=== PATIENT | female | born 2000 | race Native Hawaiian/Other Pacific Islander ===

== ENCOUNTER → 2021-03-22 | Outpatient (CLI) | payer OTHER ==
--- NOTE | 2021-03-22 10:13 | US ---
EXAMINATION TYPE: US abdomen complete DATE OF EXAM: 03/22/2021 COMPARISON: NONE CLINICAL HISTORY: R10.13 Epigastric pain. Epigastric pain after meals and radiating to back at night which awakens her; symptoms x 6 months EXAM MEASUREMENTS: Liver Length: 14.3 cm Gallbladder Wall: 0.2 cm CBD: 0.4 cm Spleen: 11.9 cm Right Kidney: 9.4 x 4.5 x 4.0 cm Left Kidney: 10.3 x 5.1 x 4.5 cm Pancreas: wnl, tail obscured by overlying bowel gas Liver: mildly fatty liver as is hyperechoic to right renal cortex Gallbladder: nonmobile shadowing stone seen in tortuous neck = 1.0 x 1.1 x 0.7cm; multiple shadowing stones seen in fundus Evidence for sonographic Cavanaugh's sign: mildly tender here CBD: wnl Spleen: wnl Right Kidney: No hydronephrosis or masses seen Left Kidney: No hydronephrosis or masses seen Upper IVC: wnl Abd Aorta: wnl The liver is homogenous. The intrahepatic portion of the IVC and proximal abdominal aorta are within normal limits. There is no evidence of cholelithiasis. Common bile duct is unremarkable. The visu alized portions of the pancreas are homogenous. The spleen is unremarkable. Kidneys are symmetric a nd free of hydronephrosis. No renal lesions are seen. IMPRESSION: 1. Nonmobile calculus in the gallbladder neck with mild tenderness. 2. Nonspecific echogenic liver most likely represents hepatic steatosis.
== END | disposition home or self-care (01) ==
LOC: RADUSWWP 08:17
PROVIDERS: ATTEND Pediatrics
DX: K80.20 Calculus of gallbladder without cholecystitis without obstruction (principal); R93.2 Abnormal findings on diagnostic imaging of liver and biliary tract
CPT/HCPCS: 76700

== ENCOUNTER → 2021-05-23 | Outpatient (CLI) | payer OTHER ==
--- NOTE | 2021-05-23 15:37 | NM ---
EXAMINATION TYPE: NM hepatobiliary w EF DATE OF EXAM: 05/23/2021 COMPARISON: Ultrasound 03/22/2021 HISTORY: 21-year-old female R80.20, gallstones TECHNIQUE: After the intravenous administration of 4.1 mCi Tc 99m Mebrofenin hepatobiliary scintigrap hy is performed. Immediate images post injection. FINDINGS: There is satisfactory initial accumulation of tracer by the liver. The gallbladder is visualized wit hin 16 minutes. The small bowel activity is noted within 24 minutes. At one hour 8 ounces of oral e nsure plus is given to mimic CCK and gallbladder ejection fraction is calculated at 67 %, in the norm al range. IMPRESSION: No scintigraphic evidence for acute/chronic cholecystitis or biliary dyskinesia.
== END | disposition home or self-care (01) ==
LOC: RADNMMAIN 12:31
PROVIDERS: ATTEND Pediatrics
DX: K80.20 Calculus of gallbladder without cholecystitis without obstruction (principal)
CPT/HCPCS: 78226; A9537

== ENCOUNTER → 2023-04-01 | Outpatient (CLI) | payer OTHER ==
--- NOTE | 2023-04-01 11:48 | US ---
EXAMINATION TYPE: US abdomen complete DATE OF EXAM: 04/01/2023 COMPARISON: US 2020 CLINICAL INDICATION: Female, 23 years old with history of RIGHT UPPER QUADRANT PAIN R10.00; Intermitt ent abdomen pain x 1 year, known cholelithiasis TECHNIQUE: Multiple sonographic images of the abdomen are obtained. FINDINGS: EXAM MEASUREMENTS: Liver Length: 14.7 cm Gallbladder Wall: 0.2 cm CBD: 0.6 cm Spleen: 12.1 cm Right Kidney: 10.0 x 5.6 x 4.5 cm Left Kidney: 10.6 x 5.8 x 4.6 cm Pancreas: wnl Liver: wnl Gallbladder: cholelithiasis with 1.3cm stone in neck Evidence for sonographic Cavanaugh's sign: no CBD: borderline dilated Spleen: wnl Right Kidney: wnl Left Kidney: wnl Upper IVC: wnl Abd Aorta: wnl The liver is homogenous. The intrahepatic portion of the IVC and proximal abdominal aorta are within normal limits. Common bile duct is unremarkable. The visualized portions of the pancreas are homog enous. The spleen is unremarkable. Kidneys are symmetric and free of hydronephrosis. No renal lesi ons are seen. IMPRESSION: 1. No evidence for acute process. 2. Cholelithiasis
== END | disposition home or self-care (01) ==
LOC: RADUSWWP 09:33
PROVIDERS: ATTEND Pediatrics
DX: K80.20 Calculus of gallbladder without cholecystitis without obstruction (principal)
CPT/HCPCS: 76700

== ENCOUNTER 2025-01-20 21:58 | Observation (INO) | payer BC, OTHER ==
--- NOTE | 2025-01-20 22:29 | ED ---
General Adult HPI - General Chief complaint: Seizure Stated complaint: 19 Week - Seizure Time Seen by Provider: 01/20/25 22:08 Source: patient Mode of arrival: wheelchair Limitations: no limitations - History of Present Illness Initial comments: Patient is a pleasant 24-year-old female, G1, P0, currently 18 weeks 6 days , presenting today for seizure. Patient has a history of seizures. States she has been he has been seizure-free for 6 to 7 years and has had an increased frequency of seizures during her . Last seizure was in November. Today seizure was witnessed by her boyfriend. States looked similar prior to seizures, typical grand mal seizure. Last 1 minutes 15 seconds. Patient has since returned to baseline. She did not hit her head as she was seated at the time. Patient currently takes Lamictal and Onfi. Her medications were changed in November after her last seizure. She sees a neurologist out of [facility]. She currently endorses a mild headache that she states she typically gets after her seizures. Rates 4-5 out of 10. She denies changes in vision, focal numbness or weakness, chest pain, shortness of breath, fevers or chills, neck stiffness, abdominal pain, vomiting, dysuria, urinary frequency or hematuria. Denies vaginal bleeding or vaginal discharge. Of note typically sees Dr. Guerrero, Neurology, [facility]. Was on zonegran, 250 mg nightly, onfi and lamictal 250 BID until her last seizure in November. At that time, patient was taken off of zonegran and lamictal was increased to 350 mg BID. Pt's mother states this was done in consultation with high frequency mill operator, who pt states she sees due to her seizure history. Pt states that Dr. Guerrero said she planned to restart the patient on zonegran if she had another seizure. - Related Data Home Medications Medication Instructions Recorded Confirmed Topiramate [Topamax] 100 mg PO DAILY 04/05/16 07/08/16 Topiramate [Topamax] 150 mg PO HS 04/05/16 07/08/16 Acetaminophen Tab [Tylenol] 1,000 mg PO Q6H PRN 07/08/16 07/08/16 cloBAZam [Onfi] 10 mg PO DAILY 07/08/16 07/08/16 cloBAZam [Onfi] 15 mg PO HS 07/08/16 07/08/16 Allergies Allergy/AdvReac Type Severity Reaction Status Date / Time No Known Allergies Allergy Verified 01/20/25 22:04 Review of Systems ROS Statement: Those systems with pertinent positive or pertinent negative responses have been documented in the HPI. ROS Other: All systems not noted in ROS Statement are negative. Past Medical History Past Medical History: Seizure Disorder Additional Past Medical History / Comment(s): absent and grand mal seizures History of Any Multi-Drug Resistant Organisms: None Reported Past Surgical History: No Surgical Hx Reported, Cholecystectomy Past Psychological History: No Psychological Hx Reported Smoking Status: Never smoker Past Alcohol Use History: Occasional Past Drug Use History: None Reported - Past Family History Mother Family Medical History: No Reported History General Exam - General Exam Comments Initial Comments: PE: CONSTITUTIONAL: No apparent distress, well appearing SKIN: Warm, dry, no jaundice, hives or petechiae EYES: Pupils are equally round, extraocular movements intact without nystagmus, clear conjunctiva, non-icteric sclera HENT: Normocephalic, atraumatic, moist mucus membranes, oropharynx clear without exudates NECK: , Full range of motion, normal appearance PULMONARY: Clear to auscultation without wheezes, rhonchi, or rales, normal excursion, no accessory muscle use and no stridor CARDIOVASCULAR: Regular rate, rhythm, normal S1 and S2. No appreciated murmurs, rubs or gallops. Strong radial pulses with intact distal perfusion. No lower extremity edema GASTROINTESTINAL: Soft, active bowel sounds throughout, non-tender, non- distended, no palpable masses, no rebound or guarding. No hepatosplenomegaly GENITOURINARY: MUSCULOSKELETAL: Extremities have no gross deformity, no edema, redness, or swelling. NEUROLOGIC:_a/o x 3, GCS 15, normal mentation and speech. Moves all extremities x 4 without motor or sensory deficit PSYCHIATRIC:_normal mood and affect, thought process is clear and linear Limitations: no limitations Course Vital Signs 01/20/25 01/21/25 22:00 00:22 Temperature 98.3 F 98.7 F Pulse Rate 91 85 Respiratory 18 16 Rate Blood Pressure 132/80 120/76 O2 Sat by Pulse 93 L 100 Oximetry EKG Findings - EKG Comments: EKG Findings:: Sinus rhythm, rate 84 bpm intervals within acceptable limits, normal axis, no ST elevations or depressions, no arrhythmia, no Brugada pattern, no delta waves no ST elevations or depression Medical Decision Making - Medical Decision Making Was pt. sent in by a medical professional or institution (KATTY Hernandez, REGISTERED OCCUPATIONAL THERAPIST, urgent care, hospital, or jail...) When possible be specific @ -No Did you speak to anyone other than the patient for history (EMS, parent, family, police, friend...)? What history was obtained from this source @Spoke with patient's boyfriend who witnessed seizure, described as a grand mal seizure lasting 1 minute 15 seconds, no head injury Did you review nursing and triage notes (agree or disagree)? Why? @ -I reviewed and agree with nursing and triage notes Were old charts reviewed (outside hosp., previous admission, EMS record, old EKG, old radiological studies, urgent care reports/EKG's, jail records)? Report findings @ -Medical records reviewed Differential Diagnosis (chest pain, altered mental status, abdominal pain women, abdominal pain men, vaginal bleeding, weakness, fever, dyspnea, syncope, headache, dizziness, GI bleed, back pain, seizure, CVA, palpatations, mental health, musculoskeletal)? @ -Differential Seizure: Recurrent seizure disorder, febrile seizure, alcohol withdrawal, stimulants, meningitis, encephalitis, intercranial hemorrhage, intracranial tumor, stroke, eclampsia, thyrotoxicosis, hypocalcemia, hyponatremia, hypernatremia, hypomagnesemia, psychogenic, this is not meant to be an all-inclusive list. EKG interpreted by me (3pts min.). @ -As above X-rays interpreted by me (1pt min.). @ -None done CT interpreted by me (1pt min.). @ -None done U/S interpreted by me (1pt. min.). @ -None done What testing was considered but not performed or refused? (CT, X-rays, U/S, labs)? Why? @ -None What meds were considered but not given or refused? Why? @Did consider Keppra bolus however after discussion with Dr. Thornton, recommends against this at this point Did you discuss the management of the patient with other professionals (professionals i.e. KATTY Hernandez, REGISTERED OCCUPATIONAL THERAPIST, lab, RT, psych nurse, outreach and education social worker, scrummaster, teacher, security officer supervisor, behavioral health case manager)? Give summary @Case discussed with Dr. Thornton, neurology, appreciate recommendations. We had an extensive discussion regarding adjustments to patient's medications, and based off of patient's history, and reported conversations with her regular neurologist, ultimately decided to restart pt's zonegran, and admit for observation and he will see in the morning- Thank you. I did also discuss case with Dr. Pennington, sharepoint application developer for Dr. Guerrero, please see below. Agrees w/ restarting zonegran, 200 mg QHS. Was smoking cessation discussed for >3mins.? @ -No Was critical care preformed (if so, how long)? @ -No Were there social determinants of health that impacted care today? How? (Homel essness, low income, unemployed, alcoholism, drug addiction, transportation, low edu. Level, literacy, decrease access to med. care, long-term, rehab)? @ -No Was there de-escalation of care discussed even if they declined (Discuss DNR or withdrawal of care, Hospice)? @ -No What co-morbidities impacted this encounter? (DM, HTN, Smoking, COPD, CAD, Cancer, CVA, ARF, Chemo, Hep., AIDS, mental health diagnosis, sleep apnea, morbid obesity)? Epilepsy Was patient admitted / discharged? Hospital course, mention meds given and route, prescriptions, significant lab abnormalities, going to OR and other per tinent info. @Admission-Patient is a 24-year-old female history of epilepsy with grand mal seizures, currently 18 weeks 6 days presenting today for seizure at home. Last 1 minute 15 seconds. Consistent with prior seizures. Patient denies missed dosages of medications. On arrival patient is oriented x 4, no focal deficits no seizure activity. Discussed plan for basic labs, will consult neurology and OB, anticipate admission. Of note, patient is currently taking 350 mg of Lamictal twice daily in addition to onfi, 5 mg BID. Had an extensive discussion with Dr. Thornton, appreciate recommendations, ultimately after discussing's patient's current medications and recent medication changes as well as recent suggestions from patient's neurologist. Recommends admission for monitoring, will see patient in the morning. Dr. Guerrero at [facility], will add zonegran back into patient's medications. I did also discuss case with Dr. Pennington, neurology sharepoint application developer at [facility], agrees with recommend ation to add zonegran. Recommends starting with 200 mg Q HS. This was added for the patient to start tomorrow evening. Additionally case discussed with Dr. Singleton sharepoint application developer for [facility], rec's medicine admission, OB will follow for regular heart tone checks. FHT here in the ED showed HRs in 130s. Updated pt to plan of care, she is agreeable with plan. Patient discussed with KATHERIN Beaulieu who kindly excepted patient for admission for Undiagnosed new problem with uncertain prognosis? @ -No Drug Therapy requiring intensive monitoring for toxicity (Heparin, Nitro, Insulin, Cardizem)? @ -No Were any procedures done? @ -No Diagnosis/symptom? @Breakthrough seizure Acute, or Chronic, or Acute on Chronic? @Acute Uncomplicated (without systemic symptoms) or Complicated (systemic symptoms)? Complicated Side effects of treatment? @ -No Exacerbation, Progression, or Severe Exacerbation? @ -No Poses a threat to life or bodily function? How? (Chest pain, USA, LA, pneumonia, PE, COPD, DKA, ARF, appy, cholecystitis, CVA, Diverticulitis, Homicidal, Suicidal, threat to staff... and all critical care pts) @Potentially, if left unaddressed could progress to status epilepticus - Lab Data Result diagrams: 01/20/25 22:23 01/20/25 22:23 Lab Results 01/20/25 01/20/25 01/20/25 Range/Units 22:23 22:23 22:23 WBC 12.54 H (4.50-10.00) 10*3/uL RBC 4.02 L (4.10-5.20) 10*6/uL Hgb 12.3 (12.0-15.0) g/dL Hct 35.0 L (37.2-46.3) % MCV 87.1 (80.0-97.0) fL MCH 30.6 (27.0-32.0) pg MCHC 35.1 (32.0-37.0) g/dL Plt Count 289 (140-440) 10*3/uL MPV 9.2 L (9.5-12.2) fL Immature Gran % (Auto) 0.3 % Neutrophils % 70.9 % Lymphocytes % 20.5 % Monocytes % 5.9 % Eosinophils % 1.8 % Basophils % 0.6 % Immature Gran # 0.04 (0.00-0.04) 10*3/uL Neutrophils # 8.90 H (1.80-7.70) 10*3/uL Lymphocytes # 2.57 (0.90-5.00) 10*3/uL Monocytes # 0.74 (0.20-1.00) 10*3/uL Eosinophils # 0.22 (0.04-0.35) 10*3/uL Basophils # 0.07 (0.00-0.10) 10*3/uL Sodium 135 L (137-145) mmol/L Potassium 3.8 (3.5-5.1) mmol/L Chloride 104 (98-107) mmol/L Carbon Dioxide 16 L (22-30) mmol/L Anion Gap 15 mmol/L BUN 7 (7-17) mg/dL Creatinine 0.58 (0.52-1.04) mg/dL Est GFR (CKD-EPI)AfAm >90 (>60 ml/min/1.73 sqM) Est GFR (CKD-EPI)NonAf >90 (>60 ml/min/1.73 sqM) Glucose 83 (74-99) mg/dL POC Glucose (mg/dL) (70-110) mg/dL POC Glu Roll Or Tape Edge Machine Operator ID Calcium 9.4 (8.4-10.2) mg/dL Magnesium 1.7 (1.6-2.3) mg/dL Total Bilirubin 0.3 (0.2-1.3) mg/dL AST 46 H (14-36) U/L ALT 61 H (4-34) U/L Alkaline Phosphatase 78 (38-126) U/L Total Protein 6.7 (6.3-8.2) g/dL Albumin 4.0 (3.5-5.0) g/dL Urine Color Colorless Urine Appearance Clear (Clear) Urine pH 5.0 (5.0-8.0) Ur Specific Byron 1.016 (1.001-1.035) Urine Protein Trace H (Negative) Urine Glucose (UA) Negative (Negative) Urine Ketones 1+ H (Negative) Urine Blood Negative (Negative) Urine Nitrite Negative (Negative) Urine Bilirubin Negative (Negative) Urine Urobilinogen <2.0 (<2.0) mg/dL Ur Leukocyte Esterase Negative (Negative) 01/20/25 Range/Units 22:44 WBC (4.50-10.00) 10*3/uL RBC (4.10-5.20) 10*6/uL Hgb (12.0-15.0) g/dL Hct (37.2-46.3) % MCV (80.0-97.0) fL MCH (27.0-32.0) pg MCHC (32.0-37.0) g/dL Plt Count (140-440) 10*3/uL MPV (9.5-12.2) fL Immature Gran % (Auto) % Neutrophils % % Lymphocytes % % Monocytes % % Eosinophils % % Basophils % % Immature Gran # (0.00-0.04) 10*3/uL Neutrophils # (1.80-7.70) 10*3/uL Lymphocytes # (0.90-5.00) 10*3/uL Monocytes # (0.20-1.00) 10*3/uL Eosinophils # (0.04-0.35) 10*3/uL Basophils # (0.00-0.10) 10*3/uL Sodium (137-145) mmol/L Potassium (3.5-5.1) mmol/L Chloride (98-107) mmol/L Carbon Dioxide (22-30) mmol/L Anion Gap mmol/L BUN (7-17) mg/dL Creatinine (0.52-1.04) mg/dL Est GFR (CKD-EPI)AfAm (>60 ml/min/1.73 sqM) Est GFR (CKD-EPI)NonAf (>60 ml/min/1.73 sqM) Glucose (74-99) mg/dL POC Glucose (mg/dL) 104 (70-110) mg/dL POC Glu Roll Or Tape Edge Machine Operator ID Mary Elias Calcium (8.4-10.2) mg/dL Magnesium (1.6-2.3) mg/dL Total Bilirubin (0.2-1.3) mg/dL AST (14-36) U/L ALT (4-34) U/L Alkaline Phosphatase (38-126) U/L Total Protein (6.3-8.2) g/dL Albumin (3.5-5.0) g/dL Urine Color Urine Appearance (Clear) Urine pH (5.0-8.0) Ur Specific Byron (1.001-1.035) Urine Protein (Negative) Urine Glucose (UA) (Negative) Urine Ketones (Negative) Urine Blood (Negative) Urine Nitrite (Negative) Urine Bilirubin (Negative) Urine Urobilinogen (<2.0) mg/dL Ur Leukocyte Esterase (Negative) Disposition Clinical Impression: Breakthrough seizure Disposition: ADMITTED IP TO THIS [facility] Condition: Good
[2025-01-20] MEDS: ACETAMINOPHEN TAB 500 MG TAB PO STA (22:30)
[2025-01-20] MEDS: SODIUM CHLORIDE 0.9% 1,000 ML IV STA (22:31)
[2025-01-20 22:34] LABS: Basophils # (A) 0.07 10*3/uL (0.00-0.10); Basophils % (A) 0.6 %; Eosinophils # (A) 0.22 10*3/uL (0.04-0.35); Eosinophils % (A) 1.8 %; HGB 12.3 g/dL (12.0-15.0); Lymphocytes # (A) 2.57 10*3/uL (0.90-5.00); Lymphocytes % (A) 20.5 %; MCH 30.6 pg (27.0-32.0); MCHC 35.1 g/dL (32.0-37.0); MCV 87.1 fL (80.0-97.0); Mean Platelet Volume 9.2 fL (9.5-12.2); Monocytes # (A) 0.74 10*3/uL (0.20-1.00); Monocytes % (A) 5.9 %; Neutrophils % (A) 70.9 %; Platelet Count 289 10*3/uL (140-440); RBC 4.02 10*6/uL (4.10-5.20); RDW 12.8 % (11.5-14.5); WBC 12.54 10*3/uL (4.50-10.00)
[2025-01-20 22:37] LABS: Appearance,Urine Clear (Clear); Bilirubin,Urine Negative (Negative); Blood,Urine Negative (Negative); Color,Urine Colorless; Glucose,Urine (UA) Negative (Negative); Ketones,Urine 1+ (Negative); Leukocyte Esterase,Urine Negative (Negative); Nitrite,Urine Negative (Negative); Protein,Urine Trace (Negative); Specific Gravity,Urine 1.016 (1.001-1.035); Urobilinogen,Urine <2.0 mg/dL (<2.0)
[2025-01-20 22:47] LABS: Glucose,Whole Blood 104 mg/dL (70-110)
[2025-01-20 22:50] LABS: ALT 61 U/L (4-34); AST 46 U/L (14-36); African American GFR (CKD) >90 (>60 ml/min/1.73 sqM); Alkaline Phosphatase 78 U/L (38-126); Anion Gap 15 mmol/L; Blood Urea Nitrogen 7 mg/dL (7-17); Calcium 9.4 mg/dL (8.4-10.2); Carbon Dioxide 16 mmol/L (22-30); Chloride 104 mmol/L (98-107); Glucose 83 mg/dL (74-99); Magnesium 1.7 mg/dL (1.6-2.3); Non-African American GFR(CKD) >90 (>60 ml/min/1.73 sqM); Potassium 3.8 mmol/L (3.5-5.1); Sodium 135 mmol/L (137-145); Total Bilirubin 0.3 mg/dL (0.2-1.3); Total Protein 6.7 g/dL (6.3-8.2)
[2025-01-20] MEDS: lamoTRIgine 25 MG TAB PO ONE (23:11)
[2025-01-20] MEDS ORDERED: NALOXONE 0.4 MG/ML 1 ML VIAL IV PRN (23:31)
[2025-01-20] MEDS ORDERED: ONDANSETRON 4 MG/2 ML VIAL IVP PRN (23:31)
[2025-01-21] MEDS ORDERED: LORazepam 2 MG/ML INJ IV PRN (00:10)
[2025-01-21] MEDS: FAMOTIDINE 20 MG TAB PO SCH (08:02)
[2025-01-21] MEDS: lamoTRIgine 100 MG TAB PO SCH (08:02)
[2025-01-21] MEDS: CLOBAZAM 10MG TABLET PO SCH ×2 (08:04→21:14)
[2025-01-21] MEDS ORDERED: LORazepam 1 MG/0.5 ML VIAL IV PRN (08:29)
--- NOTE | 2025-01-21 10:50 | P.OBCN ---
History of Present Illness Consult date: 01/21/25 Reason for consult: other (seizures in ) Chief complaint: seizure History of present illness: Ms. Anderson is a 24 year old at 19 weeks gestation who presented yesterday to the ER for a seizure. She does have a long-standing history of seizure disorder but has been seizure free for 6-7 years prior to the . She has begun having seizures again during the . Her last seizure was in November 2024. Seizure yesterday was witness by her boyfriend and was typical for her, a grand mal seizure lasting 1 minute and 15 seconds. She quickly returned to baseline. She did not hit her head and was noted to have been seated during the seizure. The patient has a headache this morning, which is usual for her after a seizure. She has no focal motor or sensory deficits. She sees Dr. Guerrero with [facility]. She was on Zonegran 250mg qHS and Lamictal 250 BID until her last seizure in November. At that time she was taken off Zongeran and the Lamictal was increased to 350mg BID. This decision was made in consultation with OCT[facility] through [facility]. Per the patient, the plan is to restart the Zonegran is she has another seizure. Her primary OBGYN office is in [place]. Past Medical History Past Medical History: Seizure Disorder Additional Past Medical History / Comment(s): absent and grand mal seizures History of Any Multi-Drug Resistant Organisms: None Reported Past Surgical History: No Surgical Hx Reported, Cholecystectomy Past Psychological History: No Psychological Hx Reported Smoking Status: Never smoker Past Alcohol Use History: Occasional Past Drug Use History: None Reported - Past Family History Mother Family Medical History: No Reported History Medications and Allergies Home Medications Medication Instructions Recorded Confirmed Type Topiramate [Topamax] 100 mg PO DAILY 04/05/16 07/08/16 History Topiramate [Topamax] 150 mg PO HS 04/05/16 07/08/16 History Acetaminophen Tab [Tylenol] 1,000 mg PO Q6H PRN 07/08/16 07/08/16 History cloBAZam [Onfi] 10 mg PO DAILY 07/08/16 07/08/16 History cloBAZam [Onfi] 15 mg PO HS 07/08/16 07/08/16 History Allergies Allergy/AdvReac Type Severity Reaction Status Date / Time No Known Allergies Allergy Verified 01/20/25 22:04 Exam Vital Signs Temp Pulse Pulse Resp BP BP Pulse Ox 01/21/25 07:10 97.4 F L 84 16 106/69 99 01/21/25 00:35 97.6 F 85 18 115/72 98 01/21/25 00:22 98.7 F 85 16 120/76 100 01/20/25 22:00 98.3 F 91 18 132/80 93 L Intake and Output 01/20/25 01/21/25 01/21/25 22:59 06:59 14:59 Other: Voiding Method Toilet Toilet # Voids 1 Weight 79.379 kg 79.379 kg Focused physical exam is performed. The patient is in no apparent distress, breathing is non-labored. Abdomen soft, non-tender, gravid. Extremities are non- tender and non-edematous. Results Result Diagrams: 01/20/25 22:23 01/20/25 22:23 Abnormal Lab Results - Last 24 Hours (Table) 01/20/25 01/20/25 01/20/25 Range/Units 22:23 22:23 22:23 WBC 12.54 H (4.50-10.00) 10*3/uL RBC 4.02 L (4.10-5.20) 10*6/uL Hct 35.0 L (37.2-46.3) % MPV 9.2 L (9.5-12.2) fL Neutrophils # 8.90 H (1.80-7.70) 10*3/uL Sodium 135 L (137-145) mmol/L Carbon Dioxide 16 L (22-30) mmol/L AST 46 H (14-36) U/L ALT 61 H (4-34) U/L Urine Protein Trace H (Negative) Urine Ketones 1+ H (Negative) Assessment and Plan Assessment: 24 year old at 19 weeks gestation admitted to medicine for a breakthrough grand-mal seizure yesterday Plan: Will order anatomy US with dating and viability. Otherwise, will defer to neurology for medication adjustments. Unless any abnormalities or discrepancies are found on the anatomy US, will sign off of the patient at this time. If the patient remains admitted she will need once daily FHT dopplers. Thank you for this consultation.
[2025-01-21] MEDS: ACETAMINOPHEN TAB 325 MG TAB PO PRN (11:27)
--- NOTE | 2025-01-21 13:30 | P.HPIM ---
History of Present Illness H&P Date: 01/21/25 History of present illness: 24-year-old female , currently 19 weeks , presented to ER with a complaint of seizure. Patient has history of seizures, follows up at [facility]. Patient reported that she has been seizure-free for 6 to 7 years, had increased frequency of seizures during her . Patient reported the last seizure was in November. Patient had a witnessed seizure by her former friend, lasted about 1 minute and 15 seconds, reported tongue bite, denied any loss of bowel or bladder, reported to be similar to prior episodes, typical grand mal seizure. Patient reported that she returned to baseline previously. Patient denied any head injury. Patient reported that she currently takes Lamictal and Onfi, patient's medication was changed in November after her last seizure,. Patient reported mild headache after the seizure which is usual. Patient denied any fever, chills, sore throat, productive cough, chest pain, palpitations, nausea vomiting diarrhea constipation abdominal pain dysuria urgency frequency weakness or numbness of extremities. Patient sees Dr. Cordova neurology at [facility], was on zonisamide to 50 mg nightly Onfi and Lamictal to 250 mg twice daily until her last seizure in November. At that time patient was taken off furosemide, Lamictal dose was increased to 350 mg twice daily, this was done in consultation with high school science teacher. Patient reported that neurologist wanted to restart zonisamide if patient had another seizure. Patient is afebrile, heart rate 84, respiratory rate 16, blood pressure 115/72, saturating 98% room air. WBCs 12.5, hemoglobin 12.3, platelets 289. Sodium 135 potassium 3.8 chloride 104 BUN 7 creatinine 0.58. AST 46 ALT 61, normal bilirubin and alkaline phosphatase. UA unremarkable. Assessment and plan: Seizure: Patient has history of seizure, follows at [facility] with Dr. Guerrero Currently on Onfi and Lamictal Last seizure was in November, neurology was planning to restart zonisamide if p atient had another episode of seizure Continue Onfi, and Lamictal Resume zonisamide PRODUCT SAFETY TESTER consulted Neurology consulted Seizure precautions [id number] Patient is 19 weeks gestation, PRODUCT SAFETY TESTER consulted DVT prophylaxis SCD Monitor vital signs and labs Labs and medication were reviewed. Continue same treatment. Further recommendations as per clinical course of the patient PHYSICAL EXAMINATION: GENERAL: The patient is A&O x3, NAD HEENT: EOMI, Sclerae anicteric, Moist Mucous membranes Neck: Supple, Non tender, No JVD PULMONARY: Equal breath souds B/L, No wheezing, No crackles. CARDIOVASCULAR: S1, S2 present. No murmurs, rubs, or gallops. ABDOMEN: Soft, nontender, nondistended, normoactive bowel sounds. No guarding or rebound tenderness. MUSCULOSKELETAL: No edema, No cyanosis. No clubbing. Normal ROM. Intact sascha pheral pulses. NEUROLOGICAL: CN 2-12 grossly intact. No FND REVIEW OF SYSTEMS: CONSTITUTIONAL: No fever, no malaise, no fatigue. HEENT: No recent visual problems or hearing problems. Denied any sore throat. CARDIOVASCULAR: No chest pain, orthopnea, PND, no palpitations, no syncope. PULMONARY: No shortness of breath, no cough, no hemoptysis. GASTROINTESTINAL: No diarrhea, no nausea, no vomiting, no abdominal pain. NEUROLOGICAL: No headaches, no weakness, no numbness. HEMATOLOGICAL: Denies any bleeding or petechiae. GENITOURINARY: Denies any burning micturition, frequency, or urgency. MUSCULOSKELETAL/RHEUMATOLOGICAL: Denies any joint pain, swelling, or any muscle pain. ENDOCRINE: Denies any polyuria or polydipsia. The rest of the 14-point review of systems is negative. Dictation was produced using [employer] dictation software. please excuse any grammatical, word or spelling errors. Past Medical History Past Medical History: Seizure Disorder Additional Past Medical History / Comment(s): absent and grand mal seizures History of Any Multi-Drug Resistant Organisms: None Reported Past Surgical History: No Surgical Hx Reported, Cholecystectomy Past Psychological History: No Psychological Hx Reported Smoking Status: Never smoker Past Alcohol Use History: Occasional Past Drug Use History: None Reported - Past Family History Mother Family Medical History: No Reported History Medications and Allergies Home Medications Medication Instructions Recorded Confirmed Type cloBAZam [Onfi] 5 mg PO BID 07/08/16 01/21/25 History Cholecalciferol [Vitamin D3 (25 25 mcg PO DAILY 01/21/25 01/21/25 History Mcg = 1000 Iu)] Clonazepam Odt 1mg 1 mg PO BID PRN 01/21/25 01/21/25 History Vit No.179/Iron/Folic 1 tab PO DAILY 01/21/25 01/21/25 History [ Tablet] Vitamin B-6(Unknown Dose) 1 tab PO DAILY 01/21/25 01/21/25 History lamoTRIgine [LaMICtal Xr] 50 mg PO BID 01/21/25 01/21/25 History lamoTRIgine [LaMICtal Xr] 300 mg PO BID 01/21/25 01/21/25 History Allergies Allergy/AdvReac Type Severity Reaction Status Date / Time No Known Allergies Allergy Verified 01/21/25 12:21 Physical Exam Vitals: Vital Signs Temp Pulse Pulse Resp BP BP Pulse Ox 01/21/25 07:10 97.4 F L 84 16 106/69 99 01/21/25 00:35 97.6 F 85 18 115/72 98 01/21/25 00:22 98.7 F 85 16 120/76 100 01/20/25 22:00 98.3 F 91 18 132/80 93 L Intake and Output 01/20/25 01/21/25 01/21/25 22:59 06:59 14:59 Other: Voiding Method Toilet Toilet # Voids 1 Weight 79.379 kg 79.379 kg Results CBC & Chem 7: 01/20/25 22:23 01/20/25 22:23 Labs: Abnormal Lab Results - Last 24 Hours (Table) 01/20/25 01/20/25 01/20/25 Range/Units 22:23 22:23 22:23 WBC 12.54 H (4.50-10.00) 10*3/uL RBC 4.02 L (4.10-5.20) 10*6/uL Hct 35.0 L (37.2-46.3) % MPV 9.2 L (9.5-12.2) fL Neutrophils # 8.90 H (1.80-7.70) 10*3/uL Sodium 135 L (137-145) mmol/L Carbon Dioxide 16 L (22-30) mmol/L AST 46 H (14-36) U/L ALT 61 H (4-34) U/L Urine Protein Trace H (Negative) Urine Ketones 1+ H (Negative) Thrombosis Risk Factor Assmnt - Choose All That Apply Any of the Below Risk Factors Present?: No
--- NOTE | 2025-01-21 15:50 | US ---
EXAMINATION TYPE: US OB anatomy transabd DATE OF EXAM: 01/21/2025 COMPARISON: NONE CLINICAL INDICATION: Female, 24 years old with history of anatomy, dating, viability; pt had seizure last night TECHNIQUE: Transabdominal (TA) with grayscale imaging of single gestation. FINDINGS: EXAM MEASUREMENTS: GESTATIONAL AGE / DATING Dates by First Scan:) No previous this is first scan Dates by Current Scan for: (19 weeks/3 days) EDC: 06/14/2025 SURVEY IUP: Single PLACENTA: Anterior PREVIA: No previa RAYO: 9.0 cm Normal CERVICAL LENGTH (transabdominal: norm > 3.0cm): 3.1 cm BIOMETRY PRESENTATION: Variable LIE: Longitudinal BPD: 4.1 cm 18 weeks / 4 days HC: 16.5 cm 19 weeks / 2 days AC: 14.5 cm 19 weeks / 6 days FL: 2.8 cm 18 weeks / 5 days ESTIMATED WEIGHT IN GRAMS: 281 grams ESTIMATED WEIGHT IN LBS/OZ: 0 lbs. 10 oz. WEIGHT PERCENTAGE BASED ON ESTABLISHED DATE: 60 % HC/AC: 1.1 Normal FL/AC: 20 Normal HEART RATE: 172 bpm RHYTHM: Normal ANATOMY SEEN (within normal limits): * Lateral Vent (< 1 cm) 0.5 cm * Cisterna Magna (< 1.1 cm) 0.5 cm * Nuchal Fold (< 0.6 cm) 0.2 cm * Cerebellum (varies with age) 1.8 cm ANATOMY NOT SEEN: Spine CSP Outflow tracts IMPRESSION: Single live intrauterine with estimated gestational age of 19 weeks 3 days. measureme nts as above. [facility], , 01/21/2025 3:48 PM
[2025-01-21] MEDS: ZONISAMIDE 100 MG CAP PO SCH (21:15)
--- NOTE | 2025-01-22 07:30 | P.CNNES ---
History of Present Illness Consult date: 01/21/25 Requesting physician: Priscilla Tang Reason for Consult: Seizure History of Present Illness: Patient is a 24-year-old female with long-term history of epilepsy, currently 19 weeks , came to the hospital yesterday at 9:58 PM for a breakthrough seizure. Patient's family members were also present and they are provided with the history. Patient's first grand mal seizure occurred at age 11 or 12. Prior to that, she used to have absence seizures. After the grand mal seizure, she was placed on ethosuximide which she stayed on for a few months and then was discontinued because of side effects. She then tried Keppra but produced significant weight gain. Then she believes that Lamictal was started and she has been on it for years. She was started zonisamide about 1-2 years ago, because she was still having some absence seizures. She was started on Onfi about a year ago and currently on 5 mg twice a day. Patient gets grand mal seizures as well as absence seizures. With current medication regimen as below, she has not had any grand mal seizure for 6 years. She has been on Lamictal 250 mg twice a day, Onfi 5 mg twice a day, zonisamide 200 mg at bedtime. When she found out in October 2024, she saw her regular OB and sweeper operator highways. Per patient's report, the regular OB recommended to wean off zonisamide. She decrease it to 100 mg daily for a week and then stopped. At the same time, she increased gradually her dose of Lamictal to 300 mg twice a day. Patient had the first breakthrough grand mal seizure on 11/28/2024 in which she fell off the bed. The seizure lasted for a minute. She went to [facility] in [place]. The dose of Lamictal was increased to 350 mg twice a day. They were told that if patient has any more breakthrough seizure, that they should resume zonisamide which has been discontinued since she became . Patient was doing well. Patient had another seizure last night. Patient says that she was sitting in the couch, talking when suddenly her head deviated to the left and she woke up to her calling her. The seizure was witnessed by her , who states that her head deviated to the left and it stayed like that during the seizure. The seizure lasted for about 1 minute 15 seconds and she was postictal for another 5-10 minutes after. Once she came to, they brought her to the hospital. Patient did bite her tongue with both of these seizures. She did not lose control of urine. Vital signs on arrival blood pressure 132/80, which came down to 120/76, pulse rate 91 temperature 98.3. Blood test shows WBC 12.54, normal platelets. Hepatic panel with elevated AST 46, ALT 61. Renal functions are normal sodium 1 35. UA negative. EKG showed sinus rhythm. Patient had a previous CT head on 04/05/2016, which revealed no acute intracranial hemorrhage or midline shift. Chronic right sphenoid sinus disease. The ED staff Dr. Tang spoke to the neurologist crime prevention police officer at [facility] as per her documentation in the chart. It was recommended by the neurologist to resume zonisamide 200 mg bedtime, or to start on the night of 01/21/2025. They did not recommend any medication last night. Home medications include Lamictal 350 mg twice daily, Onfi 10 mg twice daily, vitamin D 25 mcg daily, vitamin B6, vitamin Patient denies tobacco or alcohol use. Denies diabetes. She is otherwise healthy. 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 Review of Systems All pertinent positive and negative review of systems mentioned in the HPI. Otherwise unremarkable. Past Medical History Past Medical History: Seizure Disorder Additional Past Medical History / Comment(s): absent and grand mal seizures History of Any Multi-Drug Resistant Organisms: None Reported Past Surgical History: No Surgical Hx Reported, Cholecystectomy Past Psychological History: No Psychological Hx Reported Smoking Status: Never smoker Past Alcohol Use History: Occasional Past Drug Use History: None Reported - Past Family History Mother Family Medical History: No Reported History Medications and Allergies Home Medications Medication Instructions Recorded Confirmed Type cloBAZam [Onfi] 5 mg PO BID 07/08/16 01/21/25 History Cholecalciferol [Vitamin D3 (25 25 mcg PO DAILY 01/21/25 01/21/25 History Mcg = 1000 Iu)] Clonazepam Odt 1mg 1 mg PO BID PRN 01/21/25 01/21/25 History Vit No.179/Iron/Folic 1 tab PO DAILY 01/21/25 01/21/25 History [ Tablet] Vitamin B-6(Unknown Dose) 1 tab PO DAILY 01/21/25 01/21/25 History lamoTRIgine [LaMICtal Xr] 50 mg PO BID 01/21/25 01/21/25 History lamoTRIgine [LaMICtal Xr] 300 mg PO BID 01/21/25 01/21/25 History Allergies Allergy/AdvReac Type Severity Reaction Status Date / Time No Known Allergies Allergy Verified 01/21/25 12:21 Physical Examination - Vital Signs Vital Signs: Vital Signs Temp Pulse Pulse Resp BP BP Pulse Ox 01/21/25 07:10 97.4 F L 84 16 106/69 99 01/21/25 00:35 97.6 F 85 18 115/72 98 01/21/25 00:22 98.7 F 85 16 120/76 100 01/20/25 22:00 98.3 F 91 18 132/80 93 L Intake and Output 01/20/25 01/21/25 01/21/25 22:59 06:59 14:59 Other: Voiding Method Toilet Toilet # Voids 1 Weight 79.379 kg 79.379 kg Patient is a young female, very pleasant, in no acute distress. Patient is alert awake oriented to time place and person. Speech and language functions are normal. Patient can name and repeat very well. No aphasia or dysarthria. Attention, concentration and fund of knowledge is adequate. On cranial nerve examination, pupils are equal, round and reacting to light, visual atwood are full on confrontation, with no neglect on double simultaneous stimulation. Extraocular muscles are intact with no nystagmus. Face is symmetric, tongue protrudes to the midline. Palatal elevation and sensation normal, hearing and shoulder shrug normal, facial sensation normal. Patient has evidence of tongue bite josephine noticed. On muscle strength testing, there is no pronator drift and the strength is normal in arms and legs distally and proximally. Deep tendon reflexes are symmetric about 1-1+ bilaterally and plantars downgoing. Sensory to touch is equal with no neglect on double simultaneous stimulation. Cerebellar function showed no ataxia for [id number] testing. No dysdiadochokinesia. No ataxia for [id number]-[id number] testing on either side. Tone and bulk of muscles normal. Gait deferred.. On general examination, there is no carotid bruit or murmur, S1-S2 audible. Chest is clear on consultation. Abdomen is soft nontender. No organomegaly, bowel sounds present. Peripheral pulses are present. No peripheral edema. Results - Laboratory Findings CBC and BMP: 01/20/25 22:23 01/20/25 22:23 Abnormal Lab Findings: Abnormal Labs 01/20/25 01/20/25 01/20/25 22:23 22:23 22:23 WBC 12.54 H RBC 4.02 L Hct 35.0 L MPV 9.2 L Neutrophils # 8.90 H Sodium 135 L Carbon Dioxide 16 L AST 46 H ALT 61 H Urine Protein Trace H Urine Ketones 1+ H Assessment and Plan Assessment: * Breakthrough grand mal seizure in a patient with long-standing history of epi lepsy. 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 Pennington at [facility]. Patient regularly follows up with Dr. Guerrero at [facility]. They have recommended to resume zonisamide tonight at the full dose 200 mg at bedtime. * I discussed with patient, if he should start with 100 mg tonight and then in couple days go up to 200 mg. Patient was to follow the directions from [facility], therefore we will start zonisamide 200 mg at bedtime. * She will be continued on Lamictal 250 mg twice a day and Onfi 5 mg twice a day. * Continue high-dose folic acid and vitamins * We will observe overnight. * Patient is to follow up with her neurologist and OB actually was [facility] definitely in the coming week. * Patient is aware of [place] state law of no driving unless seizure free for 6 months, climbing ladders, operating dangerous machinery or unsupervised swimming. * Thank you for the consult. Time with Patient: Greater than 30
[2025-01-22 07:52] VITALS: BP 119/77; PULSE 72; RESP 16; TEMP 98.4
--- NOTE | 2025-01-22 11:30 | P.DS ---
Providers Date of admission: 01/20/25 23:35 Attending physician: Sharif Grant Consults: 01/20/25 23:31 Consult Physician Routine Consulting Provider: Monserrat Singleton Consult Reason/Comments: 19 W Do you want consulting provider notified?: Already Contacted Consult Physician Routine Consulting Provider: Olivia Thornton Consult Reason/Comments: Seizure Do you want consulting provider notified?: Already Contacted Primary care physician: [facility] Course: Discharge diagnoses: Seizure: Patient has history of seizure, follows at [facility] with Dr. Guerrero Currently on Onfi and Lamictal Last seizure was in November, neurology was planning to restart zonisamide if patient had another episode of seizure Continue Onfi, and Lamictal Resume zonisamide TARIFF INSPECTOR consulted--- ordered anatomy ultrasound with dating and viability, showed 19 weeks 3 days single live intrauterine . Neurology consulted--- recommended to continue home dose of Lamictal and Onfi and resume zonisamide 200 mg nightly and outpatient follow-up with neurology at [facility] within 1 week. Seizure precautions [id number] Patient is 19 weeks gestation, TARIFF INSPECTOR consulted Hospital course: 24-year-old female , currently 19 weeks , presented to ER with a complaint of seizure. Patient has history of seizures, follows up at [facility]. Patient reported that she has been seizure-free for 6 to 7 years, had increased frequency of seizures during her . Patient reported the last seizure was in November. Patient had a witnessed seizure by her former friend, lasted about 1 minute and 15 seconds, reported tongue bite, denied any loss of bowel or bladder, reported to be similar to prior episodes, typical grand mal seizure. Patient reported that she returned to baseline previously. Patient denied any head injury. Patient reported that she currently takes Lamictal and Onfi, patient's medication was changed in November after her last seizure,. Patient reported mild headache after the seizure which is usual. Patient denied any fever, chills, sore throat, productive cough, chest pain, palpitations, nausea vomiting diarrhea constipation abdominal pain dysuria urgency frequency weakness or numbness of extremities. Patient sees Dr. Cordova neurology at [facility], was on zonisamide to 50 mg nightly Onfi and Lamictal to 250 mg twice daily until her last seizure in November. At that time patient was taken off furosemide, Lamictal dose was increased to 350 mg twice daily, this was done in consultation with sed high school teacher. Patient reported that neurologist wanted to restart zonisamide if patient had another seizure. Patient is afebrile, heart rate 84, respiratory rate 16, blood pressure 115/72, saturating 98% room air. WBCs 12.5, hemoglobin 12.3, platelets 289. Sodium 135 potassium 3.8 chloride 104 BUN 7 creatinine 0.58. AST 46 ALT 61, normal bilirubin and alkaline phosphatase. UA unremarkable. Patient was admitted hospital for further evaluation and management of seizure disorder. Neurology and TARIFF INSPECTOR consulted. Patient did not have any further episode of seizure during hospitalization. Patient continued on home dose of Lamictal and Onfi, resumed zonisamide 200 mg nightly, and recommended outpatient follow-up with TARIFF INSPECTOR in neurology at [facility] within 1 week. Patient condition vital stable at discharge. Please refer to assessment and plan above and med rec for further details. Follow-up with PCP in 1 week. Follow-up with TARIFF INSPECTOR and neurology within 1 week. PHYSICAL EXAMINATION: GENERAL: The patient is A&O x3, NAD HEENT: EOMI, Sclerae anicteric, Moist Mucous membranes Neck: Supple, Non tender, No JVD PULMONARY: Equal breath souds B/L, No wheezing, No crackles. CARDIOVASCULAR: S1, S2 present. No murmurs, rubs, or gallops. ABDOMEN: Soft, nontender, nondistended, normoactive bowel sounds. No guarding or rebound tenderness. MUSCULOSKELETAL: No edema, No cyanosis. No clubbing. Normal ROM. Intact peripheral pulses. NEUROLOGICAL: CN 2-12 grossly intact. No FND SKIN: No rashes. Dictation was produced using [employer] dictation software. please excuse any grammatical, word or spelling errors. Plan - Discharge Summary Discharge Rx Participant: Yes New Discharge Prescriptions: New Zonisamide [Zonegran] 200 mg PO HS #30 cap Continue cloBAZam [Onfi] 5 mg PO BID Cholecalciferol [Vitamin D3 (25 Mcg = 1000 Iu)] 25 mcg PO DAILY Vitamin B-6(Unknown Dose) 1 tab PO DAILY Vit No.179/Iron/Folic [ Tablet] 1 tab PO DAILY lamoTRIgine [LaMICtal Xr] 300 mg PO BID lamoTRIgine [LaMICtal Xr] 50 mg PO BID Clonazepam Odt 1mg 1 mg PO BID PRN PRN Reason: Seizures Discharge Medication List cloBAZam [Onfi] 5 mg PO BID 07/08/16 [History] Cholecalciferol [Vitamin D3 (25 Mcg = 1000 Iu)] 25 mcg PO DAILY 01/21/25 [History] Clonazepam Odt 1mg 1 mg PO BID PRN 01/21/25 [History] Vit No.179/Iron/Folic [ Tablet] 1 tab PO DAILY 01/21/25 [History] Vitamin B-6(Unknown Dose) 1 tab PO DAILY 01/21/25 [History] lamoTRIgine [LaMICtal Xr] 50 mg PO BID 01/21/25 [History] lamoTRIgine [LaMICtal Xr] 300 mg PO BID 01/21/25 [History] Zonisamide [Zonegran] 200 mg PO HS #30 cap 01/22/25 [Rx] Follow up Appointment(s)/Referral(s): Jose Argueta MD [Primary Care Provider] - 1-2 days Patient Instructions/Handouts: Seizure/Epilepsy Discharge Instructions & Follow-Up Discharge Disposition: HOME SELF-CARE
== END 2025-01-22 12:10 | disposition home or self-care (01) ==
LOC: EC 21:58 → 6NMEDSUR 23:35
PROVIDERS: ADMIT Hospitalist; ATTEND Hospitalist
DX: O99.352 Diseases of the nervous system complicating pregnancy, second trimester (principal); G40.409 Other generalized epilepsy and epileptic syndromes, not intractable, without status epilepticus; G40.A09 Absence epileptic syndrome, not intractable, without status epilepticus; Z3A.19 19 weeks gestation of pregnancy; Z79.899 Other long term (current) drug therapy
CPT/HCPCS: 96360; 99284; 36415; 93005; 80053; 80175; 83735; 85025; 81003; 76811; G0378 ×2